=== PATIENT | female | born 1965 | race Two or more races ===

== ENCOUNTER → 2018-06-29 | Outpatient (CLI) | payer OTHER | END | disposition home or self-care (01) | LOC: LAB 16:58 | DX: Z01.818 Encounter for other preprocedural examination (principal) | CPT/HCPCS: 84703; 86850; 86900; 86901 ==

== ENCOUNTER 2018-07-03 06:26 | Day surgery (SDC) | payer OTHER ==
[2018-07-03] MEDS ORDERED: MIDAZOLAM 1 MG/ML 2 ML INJ (09:57)
[2018-07-03] MEDS ORDERED: CEFAZOLIN 1 GM INJ (09:57)
[2018-07-03] MEDS ORDERED: ONDANSETRON 4 MG INJ (09:57)
[2018-07-03] MEDS ORDERED: METOCLOPRAMIDE 10 MG INJ (09:58)
[2018-07-03] MEDS ORDERED: KETOROLAC 30 MG INJ (09:59)
[2018-07-03] MEDS ORDERED: DIPHENHYDRAMINE 50 MG INJ IV (10:00)
[2018-07-03] MEDS ORDERED: ONDANSETRON 4 MG INJ IV (10:00)
[2018-07-03] MEDS ORDERED: MEPERIDINE 25 MG INJ IV (10:00)
[2018-07-03] MEDS ORDERED: HYDROmorphONE 1 MG/5 ML IV SYRINGE IV ×3 (10:00)
[2018-07-03] MEDS ORDERED: PROPOFOL 20 ML (10:13)
[2018-07-03] MEDS ORDERED: FENTAnyl 50 MCG/ML VIAL (10:20)
[2018-07-03] MEDS ORDERED: ACETAMINOPHEN 325 MG TAB PO (11:00)
== END 2018-07-03 12:26 | disposition home or self-care (01) ==
LOC: SDS 06:26
DX: N89.8 Other specified noninflammatory disorders of vagina (principal); J45.909 Unspecified asthma, uncomplicated
CPT/HCPCS: 57135; 84703; 86850; 86900; 86901; 87070; 87075; 88305